=== PATIENT | female | born 1950 | race Caucasian/White ===

== ENCOUNTER 2017-06-13 09:26 | Emergency (ER) | payer OTHER ==
--- NOTE | 2017-06-13 10:50 | RAD ---
HISTORY: Weakness COMPARISONS: July 27, 2013 VIEWS: 1: frontal portable view of the chest at 10:36 AM FINDINGS: LINES AND TUBES: None. CARDIOMEDIASTINAL SILHOUETTE: The cardiomediastinal silhouette is normal for portable technique. PLEURA: The costophrenic angles are sharp. No pleural abnormalities are noted. LUNG PARENCHYMA: The lungs are clear. ABDOMEN: The upper abdomen is clear. There is no subphrenic gas. BONES AND SOFT TISSUES: No bone or soft tissue abnormalities are noted. IMPRESSION: NO ACTIVE CARDIOPULMONARY DISEASE.
[2017-06-13] MEDS ORDERED: Meclizine TAB* 12.5 MG PO ONE ×2 (10:54→13:07)
[2017-06-13] MEDS ORDERED: NS 0.9% 1000 ML* 1,000 ML IV ONE (10:54)
--- NOTE | 2017-06-13 11:27 | RAD ---
HISTORY: Vertigo COMPARISONS: MRI dated July 02, 2011 TECHNIQUE: Multiple contiguous axial CT scans were obtained of the head without intravenous contrast. FINDINGS: HEMORRHAGE/INFARCT: There is no hemorrhage or acute infarct. MASSES/SHIFT: There is no mass or shift. EXTRA-AXIAL SPACES: There are no extra-axial fluid collections. SULCI AND VENTRICLES: The sulci and ventricles are normal in size and position for the patient's stated age. CEREBRUM: There are no focal parenchymal abnormalities. BRAINSTEM: There are no focal parenchymal abnormalities. CEREBELLUM: There are no focal parenchymal abnormalities. VESSELS: The vessels are grossly normal. PARANASAL SINUSES: The paranasal sinuses are clear. ORBITS: The orbits are unremarkable. BONES AND SOFT TISSUE: No bone or soft tissue abnormalities are noted. OTHER: None IMPRESSION: NO ACUTE INTRACRANIAL PATHOLOGY.
[2017-06-13 11:50] LABS: Hematocrit 43 % (35-47); Mean Corpuscular HGB Conc 35 g/dl (31-36); Mean Corpuscular Hemoglobin 31 pg (27-31); Mean Corpuscular Volume 88 fL (80-97); Mean Platelet Volume 7 um3 (7.4-10.4); Red Blood Count 4.85 10^6/ul (4.0-5.4); Red Cell Distribution Width 13 % (10.5-15); White Blood Count 5.3 10^3/ul (3.5-10.8)
[2017-06-13 12:02] LABS: Albumin 4.2 g/dL (3.2-5.2); BUN/Creatinine Ratio 15.3 (8-20); Calcium 8.9 mg/dL (8.6-10.3); EGFR African American 104.5 (>60); EGFR Non-African American 81.3 (>60); Globulin 2.6 g/dL (2-4); Potassium 3.8 mmol/L (3.5-5.0); Total Bilirubin 0.8 mg/dL (0.2-1.0); Total Protein 6.8 g/dL (6.4-8.9)
[2017-06-13 17:53] VITALS: BP 108/51
[2017-06-13 18:05] LABS: Urine Bacteria 1+ (Absent); Urine Bilirubin Negative (Negative); Urine Glucose Negative (Negative); Urine Nitrite Negative (Negative)
--- NOTE | 2017-06-19 12:32 | ED ---
Santiago Larry SooYoung, scribed for Luke Cazares MD on 06/13/17 at 1025 . Dizziness - HPI Summary HPI Summary: A 66 y/o F referred by her PCP today presents to ED with c/o ongoing dizziness onset last night at approx 2000. She was standing, at rest, and became dizzy and fell to the floor, she laid there for most of the night. Dizziness described as room-spinning and body-spinning. PMHx: vertigo, usually resolves spontaneously. She notes she's been having more episodes of dizziness during the day. Associated sx: weakness. Denies VICENTE, CP, syncope, LOC, tinnitus, hearing changes, sinus congestion. Pt is able to ambulate with help, walks slowly but isn't unsteady. She states eating and drinking well. Denies ETOH and drug use. Daily meds include Zoloft, thyroid medicine. Pt didn't seek emergency care last night because she has these dizziness episodes, wasn't life threatening, and she had travel plans today. - History Of Current Complaint Chief Complaint: EDDizziness Stated Complaint: DIZZY Time Seen by Provider: 06/13/17 09:59 Hx Obtained From: Patient, Family/Hypoid Gear Tester Onset/Duration: Still Present Timing: Constant Severity Initially: Moderate Severity Currently: Moderate Character: Room Spinning, Dizzy Associated Signs And Symptoms: Positive: Other: - pos: weakness; neg: VICENTE, syncope, LOC, hearing changes, sinus congestion.. Negative: Tinnitus, Chest Pain, Unsteady Gait, Inability to Walk - Allergies/Home Medications Allergies/Adverse Reactions: Allergies Allergy/AdvReac Type Severity Reaction Status Date / Time Sulfa Drugs Allergy Mild Rash Verified 06/13/17 09:32 Home Medications: Home Medications Latanoprost 0.005%* [Xalatan 0.005%*] 1 drop BOTH EYES .ONCE DAILY 06/13/17 [ History Confirmed 06/13/17] PMH/Surg Hx/FS Hx/Imm Hx Previously Healthy: No Endocrine/Hematology History: Reports: Hx Thyroid Disease - ON DAILY MEDS Denies: Hx Diabetes Cardiovascular History: Denies: Hx Hypertension, Hx Pacemaker/ICD Respiratory History: Denies: Hx Asthma GI History: Reports: Hx Cirrhosis Musculoskeletal History: Reports: Hx Osteoporosis Sensory History: Reports: Hx Contacts or Glasses - GLASSES, Hx Glaucoma - TREATED WITH DROPS DAILY Denies: Hx Hearing Aid Opthamlomology History: Reports: Hx Contacts or Glasses - GLASSES, Hx Glaucoma - TREATED WITH DROPS DAILY Psychiatric History: Reports: Hx Anxiety, Hx Depression - ON DAILY ZOLOFT Denies: Hx Panic Disorder - Cancer History Hx Chemotherapy: No Hx Radiation Therapy: No - Surgical History Surgery Procedure, Year, and Place: YOUNG CHILD EYE MUSCLE DOLORES. 1960s WISDOM TEETH DOLORES. rt wrist surgery 4 years (no implants Hx Anesthesia Reactions: No Infectious Disease History: No Infectious Disease History: Denies: Traveled Outside the [place] in Last 30 Days - Family History Known Family History: Positive: Other - neg: breast CA - Social History Occupation: Employed Full-time Lives: Alone Alcohol Use: Rare Hx Substance Use: No Substance Use Type: Reports: None Hx Tobacco Use: No Smoking Status (MU): Never Smoked Tobacco Review of Systems Negative: Fever, Chills Negative: Erythema Negative: Sore Throat, Other - neg: tinnitus, hearing changes Negative: Chest Pain Negative: Shortness Of Breath, Cough Negative: Abdominal Pain, Vomiting, Nausea Negative: dysuria, hematuria Negative: Myalgia, Edema Negative: Rash Neurological: Other - pos: dizziness Positive: Weakness All Other Systems Reviewed And Are Negative: Yes Physical Exam - Summary Physical Exam Summary: Constitutional: Well-developed, Well-nourished, Alert. (-) Distressed Skin: Warm, Dry HENT: Eyes: Conjunctiva normal Neck: Musculoskeletal ROM normal neck. (-) JVD, (-) Stridor, (-) Tracheal deviation Cardio: Rhythm regular, rate normal, Heart sounds normal; Intact distal pulses; The pedal pulses are 2+ and symmetric. Radial pulses are 2+ and symmetric. (-) Murmur Pulmonary/Chest wall: Effort normal. (-) Respiratory distress, (-) Wheezes, (-) Rales Abd: Soft. (-) Tenderness, (-) Distension, (-) Guarding, (-) Rebound Musculoskeletal: (-) Edema Lymph: (-) Cervical adenopathy Neuro: Alert, Oriented x3, Strength normal, Cranial nerves II-XII are grossly intact. (-) Dysmetria, (-) Nystagmus, (-) Ataxia by finger to nose testing, (-) Sensory deficit. Positive Chriss Gonzalez Pyke to Right. Psych: Mood and affect Normal Triage Information Reviewed: Yes Vital Signs On Initial Exam: Initial Vitals Temp Pulse Resp BP Pulse Ox 98.6 F 58 20 126/80 100 06/13/17 09:30 06/13/17 09:30 06/13/17 09:30 06/13/17 09:30 06/13/17 09:30 Vital Signs Reviewed: Yes - Delta Coma Scale Coma Scale Total: 15 Diagnostics - Vital Signs Vital Signs Temp Pulse Resp BP Pulse Ox 06/13/17 09:30 98.6 F 58 20 126/80 100 - Laboratory Result Diagrams: 06/13/17 11:29 06/13/17 11:29 Lab Statement: Any lab studies that have been ordered have been reviewed, and results considered in the medical decision making process. - Radiology CXR Xray Interpretation: No Acute Changes - IMPRESSION: No active cardiopulmonary dz. ED physician has reviewed this radiology report and agrees Radiology Interpretation Completed By: Radiologist - CT BRAIN CT Interpretation: No Acute Changes - IMPRESSION: No acute intracranial pathology. ED physician has reviewed this radiology report and agrees. CT Interpretation Completed By: Radiologist - EKG 1535 Cardiac Rate: Bradycardia - 56 bpm EKG Rhythm: Sinus Bradycardia ST Segment: Normal - no STEMI Re-Evaluation - Re-Evaluation 1 Re-Evaluation Time: 13:06 Change: Unchanged Comment: Pt still having vertigo when turning her head. She has concerns about going home because she lives alone, has many stairs, bathroom is upstairs. 2 Re-Evaluation Time: 13:25 Change: Unchanged Comment: Further conversation reveals that sister will take pt to her home upon d/c, it's single story, sister is willing to watch over her. 3 Re-Evaluation Time: 16:23 Change: Improved Comment: Pt ambulation challenged, was successful. Will dispo home. Dizzy Course/Dx - Course Course Of Treatment: A 66 y/o F referred by her PCP today presents to ED with c/ o ongoing dizziness onset last night at approx 1999. She was standing, at rest, and became dizzy and fell to the floor, she laid there for most of the night. Dizziness described as room-spinning and body-spinning. PMHx: vertigo, usually resolves spontaneously. She notes she's been having more episodes of dizziness during the day. Associated sx: weakness. Denies VICENTE, CP, syncope, LOC, tinnitus, hearing changes, sinus congestion. Pt is able to ambulate with help, walks slowly but isn't unsteady. She states eating and drinking well. Denies ETOH and drug use. Daily meds include Zoloft, thyroid medicine. Bloodwork and labs are without significant abnormality. Pt given fluids, Meclizine in ED. - Diagnoses Provider Diagnoses: Positional vertigo - Provider Notifications Discussed Care Of Patient With: Alexx Delvalle - hospitalist Time Discussed With Above Provider: 13:14 Instructed by Provider To: Other - Prefers to not admit unless medically necessary. Discharge - Discharge Plan Condition: Stable Disposition: HOME Prescriptions: Meclizine TAB* [Antivert 12.5 TAB*] 25 mg PO TID #12 tab Patient Education Materials: Benign Paroxysmal Positional Vertigo (ED), Meclizine (By mouth) Referrals: Kevin Falk MD [Primary Care Provider] - Melvin Redmond MD [Medical Doctor] - 2 Days Additional Instructions: Follow up with Dr. Redmond, ENT, in 2-3 days. Please return to the ED if you experience new or worsening symptoms. The documentation as recorded by the Santiago lubin SooYoung accurately reflects the service I personally performed and the decisions made by me, Luke Cazares MD.
== END 2017-06-13 17:51 | disposition home or self-care (01) ==
LOC: ED 09:26
DX: H81.10 Benign paroxysmal vertigo, unspecified ear (principal); R53.1 Weakness
CPT/HCPCS: 36415; 70450; 71010; 80053; 81003; 81015; 82550; 83605; 84484; 85025; 85610; 85730; 87086; 93005; 99284; A9270-GY